=== PATIENT | male | born 1990 | race Two or more races ===

== ENCOUNTER 2020-10-16 14:03 | Outpatient (CLI) | payer OTHER | END 2020-10-16 14:57 | disposition home or self-care (01) | LOC: OFIC 805 14:03 | PROVIDERS: ATTEND Otolaryngology Otology & Neurotology | DX: K21.9 Gastro-esophageal reflux disease without esophagitis (principal); J02.8 Acute pharyngitis due to other specified organisms; H92.03 Otalgia, bilateral; J31.0 Chronic rhinitis ==

== ENCOUNTER 2023-08-06 19:32 | Emergency (ER) | payer OTHER ==
[~2023-08-06] VITALS: Ht 185.4 cm; Wt 89.8 kg
[2023-08-06] MEDS ORDERED: PRILOSEC10 MG (21:11)
[2023-08-06] MEDS ORDERED: PEPCID AC10 MG (21:11)
[2023-08-06] MEDS ORDERED: GAVISCON EXTRA355 ML (21:12)
[2023-08-06 22:09] LABS: HEMATOCRIT 40.6 % (39.0-48.0); HEMOGLOBIN 13.8 g/dL (13-16.00); MEAN CELL VOLUME 97.6 fL (80.0-100.00); MEAN CORPUSCULAR HEMOGLOBIN 33.2 pg (27.00-32.0); PLATELET COUNT 227 K/uL (150-450); RED BLOOD COUNT 4.16 M/uL (4.00-6.00); RED CELL DISTRIBUTION WIDTH 13.1 % (11.5-14.5)
== END 2023-08-06 23:20 | disposition home or self-care (01) ==
LOC: ER 19:32
PROVIDERS: General Practice
DX: J32.9 Chronic sinusitis, unspecified (principal); B34.9 Viral infection, unspecified; Z20.822 Contact with and (suspected) exposure to COVID-19

== ENCOUNTER → 2023-09-11 | Emergency (ER) | payer OTHER ==
[~2023-09-11] VITALS: Ht 185.4 cm; Wt 89.4 kg
[~2023-09-11] MED LIST: CEFAZOLIN SODIUM 1,000 MG VIAL IM STA; FAMOTIDINE/PF 20 MG/2 ML VIAL IV PUSH STA; GAVISCON EXTRA355 ML; HYOSCYAMINE SULFATE 0.125 MG TAB.SUBL SL STA; ONDANSETRON HCL 2 MG/ML VIAL IV STA; PEPCID AC10 MG; PRILOSEC10 MG; RINGERS SOLUTION,LACTATED 1,000 ML IV STA
[2023-09-11 03:06] LABS: HEMATOCRIT 44.7 % (39.0-48.0); HEMOGLOBIN 15.2 g/dL (13-16.00); MEAN CELL VOLUME 96.3 fL (80.0-100.00); MEAN CORPUSCULAR HEMOGLOBIN 32.7 pg (27.00-32.0); PLATELET COUNT 189 K/uL (150-450); RED BLOOD COUNT 4.64 M/uL (4.00-6.00); RED CELL DISTRIBUTION WIDTH 13.2 % (11.5-14.5)
[2023-09-11 03:25] LABS: CALCIUM 9.5 mg/dL (8.5-10.1); CREATININE SERUM 1.46 mg/dL (0.70-1.30); GFR 55.27; POTASSIUM 4.29 mEq/L (3.5-5.1)
== END | disposition home or self-care (01) ==
LOC: ER 01:25
DX: K52.9 Noninfective gastroenteritis and colitis, unspecified (principal); R10.9 Unspecified abdominal pain

== ENCOUNTER 2023-10-13 22:41 | Emergency (ER) | payer OTHER ==
[~2023-10-13] VITALS: Ht 185.4 cm; Wt 88.0 kg
[~2023-10-13 22:41] MED LIST changes: -CEFAZOLIN SODIUM 1,000 MG VIAL IM STA; -FAMOTIDINE/PF 20 MG/2 ML VIAL IV PUSH STA; -HYOSCYAMINE SULFATE 0.125 MG TAB.SUBL SL STA; -ONDANSETRON HCL 2 MG/ML VIAL IV STA; -RINGERS SOLUTION,LACTATED 1,000 ML IV STA
[2023-10-14] MEDS ORDERED: PROMETHAZINE HCL 50 MG/ML AMPUL IM STA (02:39)
[2023-10-14] MEDS ORDERED: HYOSCYAMINE SULFATE 0.125 MG TAB.SUBL SL STA (02:39)
[2023-10-14] MEDS ORDERED: FAMOTIDINE/PF 20 MG/2 ML VIAL IV PUSH STA (02:40)
[2023-10-14] MEDS ORDERED: LACTOBACILLUS ACIDOPHILUS 1 CAP CAP PO STA (02:41)
[2023-10-14] MEDS ORDERED: 0.9 % SODIUM CHLORIDE 1,000 ML IV ONE (02:45)
[2023-10-14 02:50] LABS: HEMATOCRIT 46.4 % (39.0-48.0); HEMOGLOBIN 15.9 g/dL (13-16.00); MEAN CELL VOLUME 94.1 fL (80.0-100.00); MEAN CORPUSCULAR HEMOGLOBIN 32.2 pg (27.00-32.0); MEAN CORPUSCULAR HGB CONC 34.2 g/dl (32.0-36.0); PLATELET COUNT 201 K/uL (150-450); RED BLOOD COUNT 4.93 M/uL (4.00-6.00); RED CELL DISTRIBUTION WIDTH 12.9 % (11.5-14.5)
[2023-10-14 03:27] LABS: PH,URINE 5.5 (5.0-8.0); URINE APPEARANCE Clear; URINE BILIRRUBIN Negative (NEGATIVE); URINE BLOOD Negative; URINE COLOR Yellow; URINE GLUCOSE Negative (NEGATIVE); URINE LEUKOCYTE Negative; URINE NITRATE Negative; URINE PROTEIN Negative (NEGATIVE); URINE UROBILINOGEN 0.2 E.U./dl
[2023-10-14 03:30] LABS: URINE BACTERIA 8.8 uL (0.0-1933); URINE EPITHELIAL CELLS 2.4 uL (0.0-38.8); URINE RBC 4.4 uL (0.0-20.8); URINE WBC 2.2 uL (0.0-23.2)
[2023-10-14 03:36] LABS: CALCIUM 9.2 mg/dL (8.5-10.1); CREATININE SERUM 1.21 mg/dL (0.70-1.30); GFR 68.24; POTASSIUM 3.4 mEq/L (3.5-5.1)
== END 2023-10-14 08:59 | disposition home or self-care (01) ==
LOC: ER 22:41
PROVIDERS: General Practice
DX: K52.89 Other specified noninfective gastroenteritis and colitis (principal); R10.9 Unspecified abdominal pain

== ENCOUNTER 2023-10-15 02:23 | Inpatient (IN) | payer OTHER ==
[~2023-10-15] VITALS: Ht 182.9 cm; Wt 87.5 kg
[2023-10-15] MEDS ORDERED: 0.9 % SODIUM CHLORIDE 1,000 ML IV STA (02:46)
[2023-10-15] MEDS ORDERED: HYOSCYAMINE SULFATE 0.125 MG TAB.SUBL SL STA (02:47)
[2023-10-15] MEDS ORDERED: MEPERIDINE HCL/PF 50 MG/ML VIAL IM STA (02:47)
[2023-10-15] MEDS ORDERED: PROMETHAZINE HCL 50 MG/ML AMPUL IM STA (02:47)
[2023-10-15] MEDS ORDERED: 0.9 % SODIUM CHLORIDE 1,000 ML IV SCH (03:00)
[2023-10-15 03:13] LABS: HEMATOCRIT 44.7 % (39.0-48.0); HEMOGLOBIN 15.9 g/dL (13-16.00); MEAN CELL VOLUME 94.5 fL (80.0-100.00); MEAN CORPUSCULAR HEMOGLOBIN 33.5 pg (27.00-32.0); MEAN CORPUSCULAR HGB CONC 35.5 g/dl (32.0-36.0); PLATELET COUNT 214 K/uL (150-450); RED BLOOD COUNT 4.73 M/uL (4.00-6.00); RED CELL DISTRIBUTION WIDTH 12.8 % (11.5-14.5)
[2023-10-15 04:02] LABS: CREATININE SERUM 1.59 mg/dL (0.70-1.30); GFR 49.79; POTASSIUM 3.68 mEq/L (3.5-5.1)
[2023-10-15 04:30] LABS: PH,URINE 5.5 (5.0-8.0); URINE APPEARANCE Clear; URINE BILIRRUBIN Negative (NEGATIVE); URINE BLOOD Negative; URINE COLOR Yellow; URINE GLUCOSE Negative (NEGATIVE); URINE LEUKOCYTE Negative; URINE NITRATE Negative; URINE PROTEIN Trace (NEGATIVE); URINE UROBILINOGEN 0.2 E.U./dl
[2023-10-15 04:43] LABS: URINE BACTERIA 11.3 uL (0.0-1933); URINE EPITHELIAL CELLS 13.2 uL (0.0-38.8); URINE RBC 8.7 uL (0.0-20.8); URINE WBC 20.3 uL (0.0-23.2)
[2023-10-15] MEDS ORDERED: FAMOTIDINE/PF 20 MG/10 ML SYRINGE IV PUSH STA (11:07)
[2023-10-15] MEDS ORDERED: FAMOTIDINE/PF 20 MG/2 ML VIAL IV SCH (11:09)
[2023-10-15] MEDS ORDERED: CIPROFLOXACIN IN 5 % DEXTROSE 200 ML IV SCH (11:11)
[2023-10-15] MEDS ORDERED: METRONIDAZOLE/SODIUM CHLORIDE 100 ML IV SCH (11:11)
[2023-10-15] MEDS ORDERED: ONDANSETRON HCL 4 MG in 0.9 % SODIUM CHLORIDE 50 ML IV PRN (11:15)
[2023-10-15] MEDS ORDERED: SODIUM CHLORIDE 0.45 % 1,000 ML IV SCH (11:15)
[2023-10-15] MEDS ORDERED: MEPERIDINE HCL/PF 50 MG/ML VIAL IM SCH (12:00)
[2023-10-15 12:29] LABS: INR 1.11; PARTIAL THROMBOPLASTIN TIME 27.9 SECONDS (22.0-34.0); PROTHROMBIN TIME 11.6 SECONDS (9.0-11.5)
[2023-10-15 12:30] LABS: CALCIUM 8.9 mg/dL (8.5-10.1); CREATININE SERUM 1.22 mg/dL (0.70-1.30); GFR 67.6; POTASSIUM 4.06 mEq/L (3.5-5.1)
== END 2023-10-16 13:43 | disposition home or self-care (01) | DRG 392 ==
LOC: ER 02:23 → MEDI 11:49
PROVIDERS: Emergency Medicine; General Practice; ADMIT Internal Medicine; ATTEND Internal Medicine
PROC: BW21ZZZ Computerized Tomography (CT Scan) of Abdomen and Pelvis (ICD-10-PCS; principal; 2023-10-15)
DX: K52.9 Noninfective gastroenteritis and colitis, unspecified (principal); Z20.822 Contact with and (suspected) exposure to COVID-19

== ENCOUNTER 2024-06-03 00:41 | Emergency (ER) | payer OTHER ==
[~2024-06-03] VITALS: Ht 185.4 cm; Wt 90.3 kg
[2024-06-03] MEDS ORDERED: METOCLOPRAMIDE HCL 5 MG/ML VIAL IM STA (02:16)
[2024-06-03] MEDS ORDERED: FAMOtidine 10 MG/ML (4ML VIAL) IV PUSH STA (02:17)
[2024-06-03] MEDS ORDERED: HYOSCYAMINE SULFATE 0.125 MG TAB.SUBL SL ONE (02:30)
== END 2024-06-03 02:30 | disposition home or self-care (01) ==
LOC: ER 00:43
DX: K21.9 Gastro-esophageal reflux disease without esophagitis (principal); K29.70 Gastritis, unspecified, without bleeding; K30 Functional dyspepsia; R10.9 Unspecified abdominal pain

== ENCOUNTER 2025-05-11 23:07 | Emergency (ER) | payer OTHER ==
[~2025-05-11] VITALS: Ht 185.4 cm; Wt 78.0 kg
[2025-05-11] MEDS ORDERED: KETOROLAC TROMETHAMINE 30 MG VIAL IV ONE (23:30)
[2025-05-11] MEDS ORDERED: ONDANSETRON HCL 2 MG/ML VIAL IV ONE (23:30)
[2025-05-11] MEDS ORDERED: FAMOtidine 10 MG/ML (4ML VIAL) IV ONE (23:30)
[2025-05-11] MEDS ORDERED: 0.9 % SODIUM CHLORIDE 1,000 ML IV ONE (23:30)
[2025-05-12 00:10] LABS: BASO % 0.4 % (0.1-1.2); EOS # 0.06 (0.04-0.54); EOS % 0.7 % (0.7-7.0); LYMPH # 3.45 (1.18-3.74); LYMPH % 42.8 % (19.3-53.1); MEAN PLATELET VOLUME 9.60 fl (9.4-12.4); MONO # 0.76 (0.24-0.82); MONO % 9.4 % (4.7-12.5); NEUT # 3.75 (1.56-6.13); NEUT % 46.5 % (34.0-71.1); RED CELL DISTRIBUTION WIDTH 11.8 % (11.6-14.4)
[2025-05-12 00:37] LABS: ALT/SGPT 31.0 U/L (12-78); AST/SGOT 22.0 U/L (15-37); BILIRUBIN TOTAL 0.38 mg/dL (0.3-1.2); BILIRUBIN,CONJUGATED 0.14 mg/dL (0.0-0.2); BUN CREA RATIO 16.0 (7.0-25.0); CREATININE SERUM 1.37 mg/dL (0.70-1.30); GFR 58.79; GLOBULINA 2.8 G/DL (2.4-3.5); GLUCOSE FASTING 105.0 mg/dL (65-100); OSMOLALITY SERUM 287.0 MOSM/KG (275-295)
[2025-05-12 01:02] LABS: URINE APPEARANCE Clear; URINE BILIRRUBIN Negative (NEGATIVE); URINE BLOOD Negative; URINE COLOR Dark Yellow; URINE GLUCOSE Negative (NEGATIVE); URINE KETONE Negative (NEGATIVE); URINE LEUKOCYTE Negative; URINE NITRATE Negative; URINE PROTEIN Negative (NEGATIVE); URINE UROBILINOGEN 1.0 E.U./dl
[2025-05-12 01:06] LABS: URINE BACTERIA 49.2 uL (0.0-1933); URINE RBC 4.3 uL (0.0-20.8); URINE WBC 2.3 uL (0.0-23.2)
[2025-05-12 01:23] LABS: URINE CAST 0.00 uL (0.0-1.40); URINE EPITHELIAL CELLS 1.2 uL (0.0-38.8)
[2025-05-12] MEDS ORDERED: ZOFRAN8 MG PO (03:50)
[2025-05-12] MEDS ORDERED: PEPCID AC20 MG PO (03:50)
[2025-05-12] MEDS ORDERED: LEVSIN/SL0.125 MG SL (03:50)
[2025-05-12] MEDS ORDERED: KETOROLAC TROMETHAMINE 30 MG VIAL IV ONE (04:00)
[2025-05-12] MEDS ORDERED: HYOSCYAMINE SULFATE 0.125 MG TAB.SUBL SL ONE (04:00)
== END 2025-05-12 04:41 | disposition home or self-care (01) ==
LOC: ER 23:07
PROVIDERS: General Practice
DX: R10.11 Right upper quadrant pain (principal); K59.00 Constipation, unspecified; R11.2 Nausea with vomiting, unspecified; K29.70 Gastritis, unspecified, without bleeding